=== PATIENT | female | born 1985 | race African-American/Black ===

== ENCOUNTER 2016-12-24 01:41 | Emergency (ER) | payer SELFPAY ==
[~2016-12-24] VITALS: Ht 157.5 cm; Wt 68.2 kg
[2016-12-24 01:45] VITALS: BP 121/78
== END 2016-12-24 02:56 | disposition home or self-care (01) ==
LOC: ED 02:46
DX: F15.10 Other stimulant abuse, uncomplicated (principal); F11.10 Opioid abuse, uncomplicated
CPT/HCPCS: 99281

== ENCOUNTER 2017-07-08 17:21 | Emergency (ER) | payer MEDICAID ==
[~2017-07-08] VITALS: Ht 170.2 cm; Wt 71.9 kg
[2017-07-08 18:32] LABS: MEAN CORPUSCULAR HEMOGLOBIN 21.3 pg (27.0-34.8); MEAN CORPUSCULAR HGB CONC 31.4 g/dL (32.4-35.8); MEAN CORPUSCULAR VOLUME 67.7 fL (80-100); MEAN PLATELET VOLUME 8.8 fL (7.4-10.4); PLATELET COUNT 319 x10^3/uL (130-400); RED BLOOD COUNT 5.35 x10^6/uL (3.82-5.3); RED CELL DISTRIBUTION WIDTH 18.8 % (9.6-15.2)
[2017-07-08 18:36] LABS: ALBUMIN 3.5 g/dL (3.4-5.0); ANION GAP 8 mmol/L (5-15); CALCIUM 9.2 mg/dL (8.5-10.1); CHLORIDE 104 mmol/L (98-107)
[2017-07-08 18:40] LABS: ALANINE AMINOTRANSFERASE 17 U/L (12-78); ALKALINE PHOSPHATASE 83 U/L (45-117); BILIRUBIN,TOTAL 0.4 mg/dL (0.2-1.0); CREATININE 0.79 mg/dL (0.55-1.02); TOTAL PROTEIN 8.5 g/dL (6.4-8.2)
[2017-07-08 18:44] LABS: BASOPHILS # (AUTO) 0.03 x10^3/uL (0-0.1); BASOPHILS % (AUTO) 0 % (0-1); EOSINOPHILS # (AUTO) 0.08 x10^3/uL (0-0.4); EOSINOPHILS % (AUTO) 1 % (1-7); LYMPHOCYTES % (AUTO) 14 % (22-44); MD SCAN; MONOCYTES # (AUTO) 0.88 x10^3/uL (0.2-0.8); MONOCYTES % (AUTO) 7 % (2-9); NEUTROPHILS % (AUTO) 79 % (42-75)
[2017-07-08] MEDS ORDERED: LIDOCAINE 1%, 10ML ONE (19:25)
[2017-07-08] MEDS ORDERED: LORazepam 2 MG/ML, 1ML ONE (19:35)
[2017-07-08] MEDS ORDERED: LORazepam 2 MG/ML, 1ML IM ONE (20:00)
[2017-07-08] MEDS ORDERED: IBUPROFEN 200 MG TABLET ONE (20:45)
[2017-07-08 22:44] VITALS: BP 100/63
== END 2017-07-08 22:48 | disposition home or self-care (01) ==
LOC: ED 22:45
DX: L02.414 Cutaneous abscess of left upper limb (principal)
CPT/HCPCS: 10060; 36415; 76882; 80053; 85025; 96372; 99285; J2060

== ENCOUNTER 2017-12-28 05:51 | Emergency (ER) | payer MEDICAID ==
[~2017-12-28] VITALS: Ht 170.2 cm; Wt 80.0 kg
[2017-12-28 05:57] VITALS: BP 125/81
== END 2017-12-28 06:42 | disposition home or self-care (01) ==
LOC: ED 06:15
DX: N76.0 Acute vaginitis (principal); F17.200 Nicotine dependence, unspecified, uncomplicated
CPT/HCPCS: 99283

== ENCOUNTER 2019-01-13 06:25 | Emergency (ER) | payer MEDICAID ==
[~2019-01-13] VITALS: Ht 170.2 cm; Wt 75.0 kg
[2019-01-13 06:27] VITALS: BP 126/55
[2019-01-13] MEDS ORDERED: hydrOXYzine 50 MG/ML IM PRN (07:00)
--- NOTE | 2019-01-13 07:03 | NUR ---
LATE NOTE ENTRY FOR 0645: Received bedside report from BAO Michelle. All questions answered. Assuming care of pt at this time. Pt restless and moving around on gurney. Bedrails up x 2. Pt AOX4, but is unable to "stop moving". Pt states, "I used black tar heroin 7 hours ago, it was the same as I always do, but I can't stop moving. I am tired and I am scared." Pt follows commands and states, "I will not climb out of the bed over the rails." Call light within reach. Water provided per request. Pt refusing monitors such as NIBP cuff, continous pulse ox, or library monitor at this time. No other needs requested at this time. LISSETH.
--- NOTE | 2019-01-13 08:46 | NUR ---
Patient given discharge instructions and they have confirmed that they understand the instructions. Patient ambulatory with steady gait. Pt provided shirt and food per request. Pt left with all personal belongings, d/c paperwork, and prescription. Pt encouraged to return if symptoms worsen or change.
== END 2019-01-13 08:48 | disposition home or self-care (01) ==
LOC: ED 08:46
DX: F15.129 Other stimulant abuse with intoxication, unspecified (principal); F11.129 Opioid abuse with intoxication, unspecified
CPT/HCPCS: 96372; 99283; J3410